=== PATIENT | female | born 1995 | race Hispanic/Latino ===

== ENCOUNTER 2016-12-09 09:41 | Emergency (ER) | payer OTHER ==
[2016-12-09 10:47] VITALS: BP 120/77; PULSE 67; RESP 19; TEMP 98.1; O2SAT 100
--- NOTE | 2016-12-09 10:57 | ED PDOC ---
Arrival/HPI - General Chief Complaint: Female Genitourinary Time Seen by Provider: 12/09/16 10:13 Historian: Patient - History of Present Illness Narrative History of Present Illness (Text): 12/09/16 10:56 Suzette Walton is a 21 year old female who presents to the emergency department requesting for STD test. States that developed urethritis/STD symptoms and wanted to get checked out. Patient is asymptomatic and denies any complaints. Severity Level: Mild Activities at Onset: Light Past Medical History - Provider Review Nursing Documentation Reviewed: Yes - Infectious Disease Hx of Infectious Diseases: None - Psychiatric Hx Substance Use: No - Anesthesia Hx Anesthesia: No Hx Anesthesia Reactions: No Hx Malignant Hyperthermia: No Family/Social History - Physician Review Nursing Documentation Reviewed: Yes Family/Social History: No Known Family HX Smoking Status: Never Smoked Hx Alcohol Use: No Hx Substance Use: No Allergies/Home Meds Allergies/Adverse Reactions: Allergies No Known Allergies Allergy (Verified 12/09/16 10:47) Home Medications: Home Meds Medication Instructions Recorded Confirmed Norgestimate-Ethinyl Estradiol 1 tab PO DAILY 12/09/16 12/09/16 [Sprintec 28 Day Tablet] Review of Systems - Physician Review All systems were reviewed & negative as marked: Yes - Review of Systems Constitutional: Normal. absent: Fatigue, Fevers Genitourinary Female: Normal. absent: Dysuria, Frequency, Vaginal Bleeding, Vaginal Discharge Musculoskeletal: Normal Skin: Normal. absent: Rash Psychiatric: Normal Physical Exam Vital Signs Reviewed: Yes Vital Signs Temp Pulse Resp BP Pulse Ox 12/09/16 10:42 98.1 F 67 19 120/77 100 Temperature: Afebrile Blood Pressure: Normal Pulse: Regular Respiratory Rate: Normal Appearance: Positive for: Well-Appearing, Non-Toxic, Comfortable Pain Distress: None Mental Status: Positive for: Alert and Oriented X 3 - Systems Exam Head: Present: Atraumatic, Normocephalic Pupils: Present: PERRL Conjunctiva: Present: Normal Mouth: Present: Moist Mucous Membranes Respiratory/Chest: Present: Clear to Auscultation, Good Air Exchange. No: Respiratory Distress, Accessory Muscle Use Cardiovascular: Present: Regular Rate and Rhythm, Normal S1, S2. No: Murmurs Abdomen: Present: Normal Bowel Sounds. No: Tenderness, Distention, Peritoneal Signs, Rebound, Guarding Genitourinary/Pelvic Exam: Present: Other (Deferred exam ) Upper Extremity: Present: Normal Inspection. No: Cyanosis, Edema Lower Extremity: Present: Normal Inspection. No: Edema Neurological: Present: GCS=15, CN II-XII Intact, Speech Normal Skin: Present: Warm, Dry, Normal Color. No: Rashes Psychiatric: Present: Alert, Oriented x 3, Normal Insight, Normal Concentration Medical Decision Making ED Course and Treatment: Impression: A 21 year old female who presents to the emergency department for STD testing. Plan: -- Chlamydia GC -- Zithromax -- Recephin -- Urine Culture -- Reassess and disposition Progress Notes: 12/09/16 11:55 Re-evaluation. Patient feels better. Discussed results and plan with patient who expresses understanding. All questions answered and there is agreement with the plan to discharge home with instructions. Patient stable for discharge. Return if symptoms persist or worsen. Re-evaluation Time: 11:55 Reassessment Condition: Re-examined, Improved - Lab Interpretations Lab Results: Lab Results 12/09/16 11:16: Urine HCG, Qual Negative 12/09/16 11:16: Urine Color Yellow, Urine Appearance Clear, Urine pH 6.5, Ur Specific [place] 1.015, Urine Protein Negative, Urine Glucose (UA) Negative, Urine Ketones Negative, Urine Blood Negative, Urine Nitrate Negative, Urine Bilirubin Negative, Urine Urobilinogen 0.2, Ur Leukocyte Esterase Negative - Medication Orders Current Medication Orders: Azithromycin (Zithromax) 1,000 mg PO STAT STA PRN Reason: Protocol Stop: 12/09/16 11:36 Ceftriaxone Sodium (Rocephin) 250 mg IM STAT STA PRN Reason: Protocol Stop: 12/09/16 11:36 Disposition/Present on Arrival - Present on Arrival Any Indicators Present on Arrival: No History of DVT/PE: No History of Uncontrolled Diabetes: No Urinary Catheter: No History of Decub. Ulcer: No History Surgical Site Infection Following: None - Disposition Have Diagnosis and Disposition been Completed?: Yes Diagnosis: Possible exposure to STD Disposition: HOME/ ROUTINE Disposition Time: 11:55 Patient Plan: Discharge Patient Problems: Current Active Problems Problem Status Onset Possible exposure to STD Acute Condition: GOOD Discharge Instructions (ExitCare): Safe Sex (ED) Additional Instructions: Call private doctor for follow up visit in 1-2 days . Review test result in 3 days with your Private doctor . Return to emergency if symptoms worsen. Referrals: Bryce Parmar DO [Primary Care Provider] - Follow up with primary Forms: [employer] ([place]ese)
[2016-12-09] MEDS ORDERED: cefTRIAXone (Rocephin) 250 mg Inj IM STA (11:35)
[2016-12-09 11:41] LABS: PH,URINE 6.5 (4.7-8.0); URINE BILIRUBIN NEGATIVE (NEGATIVE); URINE BLOOD NEGATIVE (NEGATIVE); URINE GLUCOSE (UA) NEGATIVE (NEGATIVE); URINE LEUKOCYTE ESTERASE NEGATIVE Leu/uL (NEGATIVE); URINE NITRATE NEGATIVE (NEGATIVE); URINE PROTEIN NEGATIVE mg/dL (<30 mg/dL); URINE UROBILINOGEN 0.2 E.U./dL (<1 E.U./dL)
[2016-12-09 11:52] LABS: URINE APPEARANCE CLEAR (CLEAR); URINE COLOR YELLOW (YELLOW)
== END 2016-12-09 12:17 | disposition home or self-care (01) ==
LOC: ED 09:41 → MERGE 09:41 → ED 12:17
DX: Z04.8 Encounter for examination and observation for other specified reasons (principal)
CPT/HCPCS: 81003; 84703; 87086; 87491; 87591; 96372; 99282; J0696